=== PATIENT | female | born 1940 | race Caucasian/White ===

== ENCOUNTER 2024-10-06 07:17 | Day surgery (SDC) | payer OTHER ==
[2024-10-06] MEDS ORDERED: LIDOCAINE HCL/PF 1% SDV 5ML VIAL ONE (07:21)
[2024-10-06] MEDS ORDERED: ACETAMINOPHEN 500 MG TABLET (FP) PO PRN (08:53)
[2024-10-06 13:31] VITALS: BP 146/69; PULSE 81; RESP 16; TEMP 97.3
== END 2024-10-06 14:00 | disposition home or self-care (01) ==
LOC: JASU-SURG 07:17
PROVIDERS: ATTEND Pain Medicine Pain Medicine
PROC: 01HY3MZ Insertion of Neurostimulator Lead into Peripheral Nerve, Percutaneous Approach (ICD-10-PCS; principal; 2024-10-06 12:45)
DX: G89.4 Chronic pain syndrome (principal)
CPT/HCPCS: 64555; C1778; 76000-TC-FY

== ENCOUNTER 2025-01-23 10:27 | Emergency (ER) | payer OTHER ==
[2025-01-23 10:33] VITALS: BP 139/66; PULSE 90; RESP 16; TEMP 98.8; BMI 33.5
[2025-01-23] MEDS ORDERED: DOCUSATE SODIUM 100 MG CAPSULE (FP) PO ONE (11:10)
[2025-01-23] MEDS: DOCUSATE NA 100 MG/10 ML UNIT-DOSE CUPS PO ONE (11:15)
[2025-01-23] MEDS: SENNOSIDES 8.6MG TABLET (FP) PO ONE (11:15)
[2025-01-23] MEDS: METHYLNALTREXONE BROMIDE 8 MG/0.4 ML SYRINGE SQ ONE (11:20)
[2025-01-23] MEDS: SODIUM PHOSPHATE/NA BIPHOS 133 ML ENEMA PR ONE (11:26)
== END 2025-01-23 13:00 | disposition home or self-care (01) ==
LOC: FER 10:27
PROC: 3E013GC Introduction of Other Therapeutic Substance into Subcutaneous Tissue, Percutaneous Approach (ICD-10-PCS; principal; 2025-01-23)
DX: K59.00 Constipation, unspecified (principal); R10.84 Generalized abdominal pain; R14.0 Abdominal distension (gaseous)
CPT/HCPCS: 99284-25